=== PATIENT | male | born 1965 | race African-American/Black ===

== ENCOUNTER 2021-11-24 07:34 | Emergency (ER) | payer SELFPAY ==
[~2021-11-24] VITALS: Ht 172.7 cm; Wt 73.0 kg
[2021-11-24 08:00] VITALS: BP 173/97
== END 2021-11-24 10:00 | disposition home or self-care (01) ==
LOC: ER 07:34
DX: F19.10 Other psychoactive substance abuse, uncomplicated (principal); Z59.00 Homelessness unspecified; Z87.891 Personal history of nicotine dependence; F15.10 Other stimulant abuse, uncomplicated; Z86.73 Personal history of transient ischemic attack (TIA), and cerebral infarction without residual deficits
CPT/HCPCS: 99283

== ENCOUNTER 2021-11-25 01:28 | Emergency (ER) | payer SELFPAY ==
[~2021-11-25] VITALS: Ht 177.8 cm; Wt 87.0 kg
[2021-11-25 04:18] VITALS: BP 128/88
== END 2021-11-25 04:20 | disposition home or self-care (01) ==
LOC: ER 01:28
DX: S09.8XXA Other specified injuries of head, initial encounter (principal); Y08.89XA Assault by other specified means, initial encounter; Y93.89 Activity, other specified; Y92.89 Other specified places as the place of occurrence of the external cause; Y99.8 Other external cause status; I10 Essential (primary) hypertension; Z86.73 Personal history of transient ischemic attack (TIA), and cerebral infarction without residual deficits; F15.10 Other stimulant abuse, uncomplicated
CPT/HCPCS: 99283

== ENCOUNTER 2025-03-02 11:46 | Emergency (ER) | payer MEDICAID, OTHER ==
[~2025-03-02] VITALS: Ht 167.6 cm; Wt 75.0 kg
[2025-03-02 11:57] VITALS: O2SAT 99
[2025-03-02] MEDS ORDERED: AMOX1TAB16 MT (15:06)
[2025-03-02] MEDS ORDERED: BACITRACIN ZINC OINT UDPKT TOP ONE (15:15)
[2025-03-02 15:17] VITALS: BP 148/85; PULSE 89; RESP 18; TEMP 36.9; O2SAT 99
== END 2025-03-02 15:23 | disposition home or self-care (01) ==
LOC: ER 12:27
DX: S61.452A Open bite of left hand, initial encounter (principal); I10 Essential (primary) hypertension; Z86.73 Personal history of transient ischemic attack (TIA), and cerebral infarction without residual deficits; W54.0XXA Bitten by dog, initial encounter; Y93.89 Activity, other specified; Y92.89 Other specified places as the place of occurrence of the external cause; Y99.8 Other external cause status
CPT/HCPCS: 73120; 99283